=== PATIENT | male | born 1980 | race African-American/Black ===

== ENCOUNTER 2020-10-25 16:13 | Emergency (ER) | payer BC, SELFPAY ==
[2020-10-25 16:25] VITALS: BP 145/79; PULSE 74; RESP 16; TEMP 36.3; O2SAT 99
--- NOTE | 2020-10-25 17:04 | ED.DENTAL ---
HPI - Dental/Oral General Chief complaint: Dental/Oral Stated complaint: Tooth Pain History of Present Illness HPI Narrative: This is a 40-year-old male comes in complaining of right upper tooth pain states that he has a fractured tooth states that the pain started last week and then subsided swelling started last week subsided and comes back patient has appointment in November for dental appointment states that his tooth has been hurting he has been gargling between each meals and nothing is helping Related Data Allergies Allergy/AdvReac Type Severity Reaction Status Date / Time No Known Allergies Allergy Verified 10/25/20 17:32 Review of Systems Review of Systems: CONSTITUTIONAL: Denies fever, chills, or sweats. EYES: Denies visual changes, redness, or discharge. ENT: Denies rhinorrhea, congestion, sore throat, or otalgia. Right-sided dental pain reported CARDIOVASCULAR:Denies chest pain, palpitations, or edema. RESPIRATORY: Denies cough or dyspnea. GASTROINTESTINAL: Denies abdominal pain, nausea, vomiting, or diarrhea. GENITOURINARY: Denies dysuria or hematuria. SKIN:[Denies rash or itching. MUSCULOSKELETAL:Denies back pain, joint pain, or myalgia. NEUROLOGIC: Denies headache, numbness, or weakness. PSYCHIATRIC:Denies anxiety or depression PMFSH Social History Social History Gender identity (if verbalized by the patient): Male Comments At time as signature, I have reviewed and agree with nursing past medical, social, surgical and family history. Please see nursing chart for further information. There is no relevant family history pertinent to the presenting complaint. Exam Narrative: GENERAL:Well-appearing, well-nourished, and in no acute distress. HEAD:Normocephalic, atraumatic. EYES: PERRLA and EOMI. ENT: Nares clear, no rhinorrhea or epistaxis. Mucous membranes moist. Right lower tooth fractured with dental decay noted NECK: Supple. CHEST: Clear to auscultation. No respiratory distress. HEART: Regular rate and rhythm. ABDOMEN: Soft, nontender, nondistended, normal active bowel sounds. EXTREMITIES: Normal range of motion. No edema. SKIN: Warm, dry, no rash. NEURO: No focal deficits. Alert and oriented x3. Course Vital Signs Vital signs: Vital Signs Temperature 97.3 F L 10/25/20 16:25 Pulse Rate 74 10/25/20 16:25 Respiratory Rate 16 10/25/20 16:25 Blood Pressure 145/79 H 10/25/20 16:25 Pulse Oximetry 99 10/25/20 16:25 Temperature 97.3 F L 10/25/20 16:25 Pulse Rate 74 10/25/20 16:25 Respiratory Rate 16 10/25/20 16:25 Blood Pressure 145/79 H 10/25/20 16:25 Pulse Oximetry 99 10/25/20 16:25 MDM - Dental/Oral Differential Diagnosis Differential diagnosis: Likely dental caries, toothache, dental abscess, fracture of tooth and other Discharge Plan Discharge Clinical Impression: Dental caries, Dental abscess Patient Disposition: Home, Self-Care Condition: Stable Instructions: Antibiotic Form, Dental Abscess (ED), Acute Dental Trauma (ED) Additional Instructions: Antibiotic as directed Avoid temperature extremes May apply heat or ice to the face Gentle brushing and flossing Alternate tylenol and ibuprofen as needed for pain Follow-up with the dentist as soon as possible--see the list provided Prescriptions: New amoxicillin 500 mg tablet 500 mg PO Q12H 10 Days Qty: 20 RF: 0 ibuprofen 800 mg tablet 800 mg PO TID PRN (Reason: pain) Qty: 20 RF: 0 Follow-up/Referrals: PHYSICIAN,SOCIAL [employer]IA CONTENT MANAGER [Primary Care Provider] - Stand Alone Forms: Work/School Release IP Time of Disposition: 17:10
== END 2020-10-25 17:13 | disposition home or self-care (01) ==
PROVIDERS: Emergency Provider Nurse Practitioner Family
DX: K02.9 Dental caries, unspecified (principal); K04.7 Periapical abscess without sinus
CPT/HCPCS: 99213; G0463

== ENCOUNTER 2022-11-30 06:41 | Emergency (ER) | payer BC, SELFPAY ==
--- NOTE | ~2022-11-30 | XR_ITS ---
Right elbow Technique: AP, oblique, and lateral views were obtained. Clinical History: Pain Findings: No acute fracture or dislocation is seen. Osseous alignment is anatomic. Joint spaces are p reserved. There is no definite displacement of the fat pads, and soft tissues appear unremarkable. Impression: No significant abnormality seen. Reviewed, dictated and finalized at [facility]. Impression: No significant abnormality seen.
[2022-11-30 06:43] VITALS: BP 140/84; PULSE 77; RESP 18; TEMP 36.8; O2SAT 97
--- NOTE | 2022-11-30 07:21 | ED.EXTPRO ---
HPI - Extremity Problem General Chief complaint: Extremity Problem,Nontraumatic Stated complaint: right arm pain/tingling Time Seen by Provider: 11/30/22 06:54 History of Present Illness HPI Narrative: 42-year-old male present to the emergency department for evaluation of right elbow pain. Patient denies any specific falls or injuries. Patient states a few days ago his right arm was bothering him he states he did lean on his right elbow yesterday and that did cause some increased pain. Patient did take ibuprofen for pain control without significant improvement. Patient denies any falls or injuries and patient is not diabetic. Related Data Allergies Allergy/AdvReac Type Severity Reaction Status Date / Time No Known Allergies Allergy Verified 11/30/22 07:18 Review of Systems Review of Systems: All systems reviewed & are unremarkable except as noted in HPI and below PMFSH Social History Social History Gender identity (if verbalized by the patient): Male Exam Narrative: APPEARANCE: Well appearing, no pain, no distress, well-nourished. HEAD: normocephalic, atraumatic. EYES: PERRLA/EOMI, conjunctivae clear. NOSE: Normal no drainage EARS:TMS clear with good light reflex. THROAT: Pharynx clear, no exudate. NECK: Supple. No adenopathy, no masses. RESPIRATORY: Airway patent, respirations nonlabored. Clear to auscultation bilaterally, no rales, rhonchi, wheezing. CARDIOVASCULAR: Regular rate and rhythm without murmurs rubs or gallops. ABDOMINAL: Soft, nontender, nondistended, normal bowel sounds MUSCULOSKELETAL: Tenderness to right elbow with no significant effusion or deformity NEURO: Alert. Cranial nerves II through XII intact. Grossly intact SKIN: Warm, dry. Normal Color Course Course Emergency Course: 42-year-old male presented ED for evaluation of right elbow pain. X-ray was negative for acute fracture or dislocation. Patient does have a mild bursitis. No evidence of septic bursitis. Patient was updated the results of his work-up and was provided anti-inflammatories for pain control. Patient was encouraged of close follow-up with orthopedics. Patient was educated on reasons to return to the emergency department. All questions and concerns were addressed. Vital Signs Vital signs: Vital Signs Temperature 98.2 F 11/30/22 06:43 Pulse Rate 77 11/30/22 06:43 Respiratory Rate 18 11/30/22 06:43 Blood Pressure 140/84 11/30/22 06:43 Pulse Oximetry 97 11/30/22 06:43 Oxygen Delivery Room Air 11/30/22 06:43 Temperature 98.3 F 11/30/22 09:03 Pulse Rate 78 11/30/22 09:03 Respiratory Rate 18 11/30/22 09:03 Blood Pressure 136/82 11/30/22 09:03 Pulse Oximetry 98 11/30/22 09:03 Oxygen Delivery Room Air 11/30/22 06:43 MDM - Extremity (Nontraumatic) Imaging Data Radiologist's impression: Impressions Elbow X-Ray 11/30/22 07:45 Impression: No significant abnormality seen. Discharge Plan Discharge Clinical Impression: Elbow pain, right Patient Disposition: Home, Self-Care Condition: Stable Instructions: Antibiotic Form, Elbow Bursitis (ED), How to Use a Sling (ED), Elbow Strain (ED) Additional Instructions: Naproxen as directed for pain. Sling for comfort. Have close follow-up with orthopedics. If you have any worsening symptoms then please call or return to the emergency department. Prescriptions: New naproxen 500 mg tablet 500 mg PO BID Qty: 14 0RF Follow-up/Referrals: Shawn Douglas MD [Physician] - PHYSICIAN,FEDERAL AGENT [Primary Care Provider] - Stand Alone Forms: Work/School Release IP
[2022-11-30] MEDS: KETOROLAC 30 MG/ML VIAL (*BKC) IM (07:57)
--- NOTE | 2022-11-30 08:00 | PC.NURSE ---
just attempted to place sling to RUE pt unable to bend elbow enough at this time to wear sling
--- NOTE | 2022-11-30 08:56 | PC.NURSE ---
pt refused to wear sling at this time due to pain and difficulty bending elbow but did want to take sling with him
[2022-11-30 09:03] VITALS: BP 136/82; PULSE 78; RESP 18; TEMP 36.8; O2SAT 98
== END 2022-11-30 09:05 | disposition home or self-care (01) ==
PROVIDERS: Emergency Provider Emergency Medicine
DX: M25.521 Pain in right elbow (principal)
CPT/HCPCS: 73080; 96372; 99283; A4565; J1885